=== PATIENT | female | born 1970 | race Caucasian/White ===

== ENCOUNTER 2022-03-14 15:24 | Outpatient (REF) | payer BC, SELFPAY ==
--- NOTE | ~2022-03-14 | XR_ITS ---
EXAMINATION: XR CHEST CLINICAL INFORMATION: Cough. COMPARISON: None TECHNIQUE: 2 views of the chest were obtained. FINDINGS: The lungs are somewhat expanded and clear of acute process. The heart size and perivascular is normal. There is moderate spondylosis dorsal spine. No aggressive lytic or sclerotic process seen. XR/XR chest 2V IMPRESSION: Unremarkable chest examination.
== END 2022-03-14 15:25 | disposition home or self-care (01) ==
LOC: HO.XRAY 15:24
PROVIDERS: Visit Provider Registered Nurse
DX: R05.8 Other specified cough (principal)
CPT/HCPCS: 71046

== ENCOUNTER 2022-08-01 15:35 | Outpatient (REF) | payer BC, SELFPAY ==
--- NOTE | ~2022-08-01 | MM_ITS ---
EXAMINATION: MM SCREENING DIGITAL BREAST TOMOSYNTHESIS, BILATERAL CLINICAL INFORMATION: Screening. Asymptomatic. Family history breast cancer, mother. The lifetime risk of breast cancer based on the Tyrer-Cuzick Model is 14%. COMPARISON: Mammography: 06/28/2018; outside exam 03/16/2018 ([facility]); 06/11/2016, 10/14/2014 (baseline) TECHNIQUE: Digital breast tomosynthesis is performed in both the craniocaudal and mediolateral oblique views along with computer-aided detection (CAD). Synthesized 2D images are generated from the tomosynthesis. FINDINGS: There are scattered areas of fibroglandular density (ACR BI-RADS breast composition Category b). Parenchymal pattern is similar to prior studies. There is no developing density or architectural abnormality. There are no significant masses, abnormal calcifications, or other abnormalities. The axilla and skin contours are unremarkable. No significant changes. MM/MM tomosynthesis screening BI IMPRESSION: No mammographic evidence of malignancy. ASSESSMENT: BI-RADS 1: Negative RECOMMENDATION: Routine annual mammography screening. This patient's information was entered into a reminder system with a target due date for their next mammogram.
== END 2022-08-01 15:36 | disposition home or self-care (01) ==
LOC: HO.MAMMO 15:35
PROVIDERS: PCP Internal Medicine; Visit Provider Internal Medicine
DX: Z12.31 Encounter for screening mammogram for malignant neoplasm of breast (principal)
CPT/HCPCS: 77063; 77067

== ENCOUNTER 2022-12-17 18:12 | Outpatient (REF) | payer BC, SELFPAY ==
[2022-12-18 10:44] LABS: BV Int Neg Control Negative (Negative); BV Int Pos Control Positive (Positive)
== END 2022-12-17 18:13 | disposition home or self-care (01) ==
LOC: HO.HHCLNP 18:12
PROVIDERS: Visit Provider Registered Nurse
DX: R39.9 Unspecified symptoms and signs involving the genitourinary system (principal); N89.8 Other specified noninflammatory disorders of vagina
CPT/HCPCS: 87086; 87480; 87510; 87660

== ENCOUNTER 2023-03-17 13:45 | Outpatient (REF) | payer MEDICAID, SELFPAY ==
--- NOTE | ~2023-03-17 | XR_ITS ---
EXAMINATION: XR CHEST 2 VIEW CLINICAL INFORMATION: Asthma exacerbation COMPARISON: 03/14/2022 TECHNIQUE: PA and lateral views of the chest obtained. FINDINGS: The lungs are clear. There are no pleural effusions. The cardiomediastinal silhouette is normal. XR/XR chest 2V IMPRESSION: No acute cardiopulmonary disease.
[2023-03-17 19:13] LABS: Influenza A PCR NEGATIVE (Negative); Influenza B PCR NEGATIVE (Negative); Resp Syncy Virus RNA Qual PCR NEGATIVE (Negative); SARS COV2 PCR INHOUSE NEGATIVE (Negative)
== END 2023-03-17 13:46 | disposition home or self-care (01) ==
LOC: HO.HHCX 13:45
PROVIDERS: Visit Provider Internal Medicine
DX: J45.21 Mild intermittent asthma with (acute) exacerbation (principal); Z11.52 Encounter for screening for COVID-19
CPT/HCPCS: 0241U; 71046; 87205

== ENCOUNTER 2023-04-16 15:56 | Outpatient (REF) | payer MEDICAID, SELFPAY ==
--- NOTE | ~2023-04-16 | XR_ITS ---
EXAMINATION: XR CHEST CLINICAL INFORMATION: Pain. COMPARISON: 03/17/2023 TECHNIQUE: 2 views of the chest were obtained. FINDINGS: No significant abnormality is noted involving the heart, lungs, mediastinum, bony thorax or soft tissues. XR/XR chest 2V IMPRESSION: No active cardiopulmonary disease.
== END 2023-04-16 15:57 | disposition home or self-care (01) ==
LOC: HO.HHCX 15:56
PROVIDERS: Visit Provider Student in an Organized Health Care Education/Training Program
DX: M54.9 Dorsalgia, unspecified (principal)
CPT/HCPCS: 71046

== ENCOUNTER 2023-05-13 14:31 | Outpatient (REF) | payer MEDICAID, SELFPAY ==
[2023-05-15 22:33] LABS: TS Negative Control Passed; TS Panel A 1; TS Panel B 0; TS Positive Control Passed; TSpotTB Negative (Negative)
== END 2023-05-13 14:32 | disposition home or self-care (01) ==
LOC: HO.HHCL 14:31
PROVIDERS: Visit Provider Internal Medicine
DX: Z11.1 Encounter for screening for respiratory tuberculosis (principal)
CPT/HCPCS: 36415; 86481

== ENCOUNTER 2023-06-16 08:42 | Outpatient (AMB) | payer MEDICAID, SELFPAY ==
--- NOTE | 2023-06-16 08:44 | MHC.OFFVIS ---
Intake Vital Signs 06/16/23 08:59 06/16/23 09:01 Height 5 ft 3 in 5 ft 3 in Weight 209 lb 209 lb BMI 37.0 37.0 BP 120/70 Blood Pressure Location Lt brachial Position Sitting Pulse 96 Pulse Source Pulse Oximeter Pulse Oximetry (%) 99 Oxygen Delivery Method Room Air Intake Visit Reasons: E-ELECTRICIAN OUTSIDE: EDNA-LVM Intake Note: Patient presents for. loud snoring and gets up a lot during the night. Wake up coughing Allergies iodine Allergy (Unknown, Verified 06/16/23 09:23) Unknown penicillin V Allergy (Unknown, Verified 06/16/23 09:23) Unknown bee sting Allergy (Unknown, Uncoded 06/16/23 09:23) Rash HPI HPI Comments History of Present Illness Details 53 y/o female patient presents for new in-person visit for sleep consultation. She started new job, [employer] and had a DOT physical. Pt is recommended to have sleep study to r/o sleep apnea due to neck size and high BMI. Pt reports difficulty falling asleep, and staying sleep, and nocturia. Pt reports loud snoring, non refreshing and daytime sleepiness. Sleep questionnaire: Have you ever been diagnosed with a sleep disorder? No. Have you ever had a sleep study in the past? No. Have you ever been treated for a sleep disorder? No. Do you take medications for a sleep disorder? Benaryl, or Unisom. She tried melatonin, but it did not help. Do you snore? Yes. Do you wake up gasping at night? No. Do you have episodes of apneas? Don't know. If yes, are they witnessed? No. Do you have episodes of nocturnal chest pain or dyspnea? Yes, when she has nasal congestion and also when she anxious. Do you have difficulty initiating sleep? Yes. Do you have difficulty maintaining sleep? Yes. Do you wake up tired? Yes, all the time. Do you have headaches upon awakening? No. Do you wake up with dry mouth or throat? Yes. Do you have GERD? Yes. Do you have nocturia? Yes, 4-5 times at night. Do you have nocturnal leg cramps? Yes. Do you have symptoms of restless legs? Yes, sometimes. Do you act out your dreams? No. Sleep hygiene questionnaire: What is your usual sleep routine? Usual bedtime is at 10-11 pm; Usual wake up time is at 5 am. Do you take naps? Yes, sometimes. Is your sleep environment cool, dark, and quiet? Yes. Do you exercise? Yes, gym couple of times a week. Do you take caffeine or other stimulants? Soda throughout the day. Do you use electronics in bed? No. What is your work schedule? Don't know yet, she just started new job. Hypersomnolence questionnaire: Do you have daytime tiredness or fatigue? Yes. Do you easily fall asleep when inactive? Yes. Have you ever had episodes of sudden weakness? No. Have you ever had episodes of sudden weakness associated with strong emotions? No. PFSH Family History (Updated 06/16/23 @ 09:27 by Dunia Wilder [facility]) Father Skin cancer Stroke Alzheimer disease High cholesterol Mother Breast cancer in female High blood sugar Stroke Review of Systems Const All systems reviewed & are unremarkable except as noted in HPI and below Physical Exam Vital Signs: Last Vital Signs Pulse 96 06/16/23 08:59 BP 120/70 06/16/23 08:59 Pulse Ox 99 06/16/23 08:59 Oxygen Delivery Method Room Air 06/16/23 08:59 BMI result Body Mass Index 37.0 Const General: cooperative Nutritional Appearance: obese Orientation/consciousness: patient oriented x3 Neck Neck: Yes full ROM and Yes supple Resp Effort & Inspection: normal respiratory effort and able to speak in complete sentences Neuro General: patient oriented x3, gait normal and moves all extremities Cranial nerves: Yes CN's II-XII intact bilaterally Motor exam (neuro): 5/5 motor strength present throughout Psych Appearance: grossly normal Mental Status: mental status grossly normal Speech and movement: Normal speech and movement present Affect: normal affect Attitude: cooperative Assessment & Plan Assessment & Plan (1) Loud snoring: Code(s): R06.83 - Snoring (2) Daytime sleepiness: Code(s): R40.0 - Somnolence Plan Pt is advised to undergo home sleep study to assess for sleep apnea. Will f/u with pt after study to discuss results and appropriate treatment options. Sleep hygiene education provided. Wt reduction advised. Pt to call with any worsening concerns or questions. Coding Level of Care Code New Pt Level 3 (94082) Diagnoses Loud snoring R06.83 Daytime sleepiness R40.0
[2023-06-16 08:59] VITALS: BP 120/70; PULSE 96; O2SAT 99; BMI 37.0
[2023-06-16 09:01] VITALS: BMI 37.0
== END 2023-06-16 09:18 | disposition home or self-care (01) ==
PROVIDERS: PCP Internal Medicine; Visit Provider Nurse Practitioner Family
DX: R06.83 Snoring (principal); R40.0 Somnolence
CPT/HCPCS: 99203

== ENCOUNTER → 2023-06-16 08:42 | Outpatient (BNVA) | payer MEDICAID, SELFPAY | PROVIDERS: PCP Internal Medicine; Visit Provider Nurse Practitioner Family | DX: R06.83 Snoring (principal); R40.0 Somnolence | CPT/HCPCS: 99212 ==

== ENCOUNTER 2023-11-11 16:49 | Outpatient (REF) | payer MEDICAID, SELFPAY ==
[2023-11-11 17:34] LABS: MANUAL DIFF FLAG NO
[2023-11-11 17:41] LABS: Basophils Absolute Auto 0.1 X10*3/uL (0.0-0.2); Basophils Percent Auto 0.5 % (0-2); Eosinophils Absolute Auto 0.5 X10*3/uL (0.0-0.4); Eosinophils Percent Auto 4.2 % (0-4); Hematocrit 42.6 % (37.0-47.0); Imm Gran Abs Auto 0.04 X10*3/uL (0.00-0.03); Imm Gran Pct Auto 0.3 % (0.0-0.4); Lymphocytes Absolute Auto 2.4 X10*3/uL (1.2-4.9); Lymphocytes Percent Auto 18.6 % (20-40); Mean Corpuscular HGB Conc 32.9 g/dl (31.0-35.0); Mean Corpuscular Hemoglobin 28.5 pg (27.0-33.0); Mean Corpuscular Volume 86.6 fL (80.0-98.0); Monocytes Absolute Auto 0.9 X10*3/uL (0.1-1.2); Monocytes Percent Auto 7.3 % (2-11); Neutrophils Absolute Auto 8.8 x10*3/uL (2.0-8.3); Neutrophils Percent Auto 69.1 % (45-73); Platelet Count 396 X10*3/uL (160-400); Red Blood Count 4.92 X10*6/uL (4.20-5.50); Red Cell Distribution Width 14.7 % (11.0-16.0); White Blood Count 12.7 X10*3/uL (4.8-10.8)
[2023-11-11 18:10] LABS: Alanine Aminotransferase 12 U/L (0-31); Albumin Level 4.1 g/dL (3.5-5.0); Alkaline Phosphatase 89 U/L (39-117); Anion Gap 13 (12-20); Aspartate Amino Transferase 17 U/L (5-31); Bilirubin Total 0.4 mg/dL (0.0-1.0); Blood Urea Nitrogen 14 mg/dL (9-16); Calcium 9.3 mg/dL (8.4-10.2); Carbon Dioxide 23 mmol/L (22-29); Chloride 108 mmol/L (96-108); Estimated Glomerular Filt Rate > 60; Glucose Random 72 mg/dL (60-115); Sodium 140 mmol/L (135-145); Total Protein 7.1 g/dL (6.5-8.0)
[2023-11-11 18:30] LABS: TSH reflex Free T4 1.38 uIU/mL (0.32-4.0); Vitamin B12 433 pg/mL (200-900)
[2023-11-13 14:04] LABS: RPR Rapid Plasma Reagin NON-REACTIVE (NON-REACTIVE)
== END 2023-11-11 16:50 | disposition home or self-care (01) ==
LOC: HO.HHCL 16:49
PROVIDERS: Visit Provider Emergency Medicine
DX: R41.3 Other amnesia (principal)
CPT/HCPCS: 36415; 80053; 82607; 84443; 85025; 86592

== ENCOUNTER 2023-12-25 16:41 | Outpatient (REF) | payer MEDICAID, SELFPAY ==
--- NOTE | ~2023-12-25 | MR_ITS ---
MRI OF THE BRAIN WITHOUT IV CONTRAST INDICATION: Several week history of memory loss. COMPARISON: None available. TECHNIQUE: Multiplanar multisequence MR imaging of the brain was obtained without IV contrast. FINDINGS: There is no hydrocephalus, extra-axial surface collection, or herniation. No parenchymal signal abnormality. The major flow voids at the skull base are preserved. There is no acute infarct on diffusion-weighted imaging. There is no intracranial hemorrhage on the gradient recalled echo acquisition. The midline structures are normal. The cerebellar tonsils are normally positioned. The cerebellum and brainstem are normal. The craniocervical junction is normal. Osseous marrow signal intensity is homogenous. The visualized soft tissues are unremarkable. MR/MR head/brain wo con IMPRESSION: Unremarkable noncontrast MRI of the brain. Electronically signed by: José Power MD 01/13/2024 03:36 PM EDT
== END 2023-12-25 16:42 | disposition home or self-care (01) ==
LOC: HO.MRI 16:41
PROVIDERS: PCP Internal Medicine; Visit Provider Emergency Medicine
DX: R41.3 Other amnesia (principal)
CPT/HCPCS: 70551

== ENCOUNTER → 2024-02-06 10:30 | Outpatient (BNV) | payer MEDICAID, SELFPAY | PROVIDERS: PCP Internal Medicine; Visit Provider Internal Medicine | DX: Z12.31 Encounter for screening mammogram for malignant neoplasm of breast (principal) | CPT/HCPCS: 77063; 77067 ==

== ENCOUNTER 2024-02-06 10:35 | Outpatient (REF) | payer MEDICAID, SELFPAY ==
--- NOTE | ~2024-02-06 | MM_ITS ---
EXAMINATION: MM SCREENING DIGITAL BREAST TOMOSYNTHESIS, BILATERAL CLINICAL INFORMATION: Screening. Asymptomatic. COMPARISON: Mammography: Comparison is made with available priors TECHNIQUE: Digital breast mammography with tomosynthesis is performed in both the craniocaudal and mediolateral oblique views along with computer-aided detection (CAD). FINDINGS: There are scattered areas of fibroglandular density (ACR BI-RADS breast composition Category b). There are no significant masses, abnormal calcifications, or other abnormalities. MM/MM tomosynthesis screening BI IMPRESSION: No mammographic evidence of malignancy. ASSESSMENT: BI-RADS BI-RADS 1 - Negative RECOMMENDATION: Routine annual mammography screening. 1 year F/U This examination should not preclude the clinical evaluation of a suspicious palpable abnormality. This patient's information was entered into a reminder system with a target due date for their next mammogram. Electronically signed by: [place] Hammond DO 02/19/2024 09:31 AM EDT
== END 2024-02-06 10:36 | disposition home or self-care (01) ==
LOC: HO.MAMMO 10:35
PROVIDERS: PCP Internal Medicine; Visit Provider Internal Medicine
DX: Z12.31 Encounter for screening mammogram for malignant neoplasm of breast (principal)
CPT/HCPCS: 77063; 77067

== ENCOUNTER → 2024-02-16 15:01 | Outpatient (REF) | payer MEDICAID, SELFPAY | LOC: HO.SL 15:01 | PROVIDERS: PCP Internal Medicine; Visit Provider Psychiatry & Neurology Neurology | DX: G47.33 Obstructive sleep apnea (adult) (pediatric) (principal) | CPT/HCPCS: 95806 ==

== ENCOUNTER 2024-04-08 13:45 | Outpatient (REF) | payer MEDICAID, SELFPAY | END 2024-04-08 13:46 | disposition home or self-care (01) | LOC: HO.XRAY 13:45 | PROVIDERS: PCP Nurse Practitioner Primary Care; Visit Provider Nurse Practitioner Primary Care | DX: M79.672 Pain in left foot (principal) | CPT/HCPCS: 73630 ==

== ENCOUNTER 2025-05-02 09:57 | Outpatient (REF) | payer MEDICAID, SELFPAY ==
[2025-05-02 11:21] LABS: MANUAL DIFF FLAG NO
[2025-05-02 11:33] LABS: Hematocrit 41.6 % (37.0-47.0); Hemoglobin 13.4 g/dl (12.0-16.0); Imm Gran Abs Auto 0.05 X10*3/uL (0.00-0.03); Imm Gran Pct Auto 0.5 % (0.0-0.4); Lymphocytes Absolute Auto 1.9 X10*3/uL (1.2-4.9); Mean Corpuscular HGB Conc 32.2 g/dl (31.0-35.0); Mean Corpuscular Hemoglobin 28.3 pg (27.0-33.0); Mean Corpuscular Volume 87.8 fL (80.0-98.0); NRBC Abs Auto 0.000 X10*3/uL (0.0-0.012); NRBC Pct Auto 0.0 /100WBC (0.0-0.2); Platelet Count 401 X10*3/uL (160-400); Red Blood Count 4.74 X10*6/uL (4.20-5.50); White Blood Count 9.3 X10*3/uL (4.8-10.8)
[2025-05-02 12:26] LABS: Alanine Aminotransferase 25 U/L (0-31); Albumin Level 4.0 g/dL (3.5-5.0); Alkaline Phosphatase 97 U/L (39-117); Anion Gap 9 (12-20); Aspartate Amino Transferase 35 U/L (5-31); Blood Urea Nitrogen 14 mg/dL (9-16); Calcium 9.6 mg/dL (8.4-10.2); Carbon Dioxide 26 mmol/L (22-29); Chloride 109 mmol/L (96-108); Cholesterol 151 mg/dL (<200); Estimated Glomerular Filt Rate > 60; HDL Cholesterol 55 mg/dL (>40); Potassium 4.1 mmol/L (3.3-5.1); Sodium 140 mmol/L (135-145); Total Protein 6.8 g/dL (6.5-8.0); Triglycerides 75 mg/dL (<150)
[2025-05-02 12:55] LABS: Reflex LDLD? No
--- OUTSIDE RECORDS SUMMARY | 2025-05-02 12:57 | XMS_ITS | Encounter Summary ---
Author Organization [employer] Address [address] [place] [address] Care Team Providers Care Health Insurance Adjuster Name Role Phone Rekha Adhikari MD Primary Care Provider + Encounter Details Date Type Department Care Team (Latest Contact Info) Description 02/28/2019 Abstract [facility] CONVERSIONS Dental, Provider, DDS Social History Tobacco Use Types Packs/Day Years Used Date Smoking Tobacco: Never Assessed Comments Unknown Sex and Gender Information Value Date Recorded Sex Assigned at Female 03/03/2022 10:36 AM EDT Legal Sex Female 10:36 AM EDT Gender Identity Female 03/03/2022 10:36 AM EDT Sexual Orientation Choose not to disclose 2021 10:36 AM EDT documented as of this encounter Plan of Treatment Not on file documented as of this encounter Visit Diagnoses Not on filedocumented in this encounter Care Teams Health Insurance Adjuster Relationship Specialty Start Date End Date Rekha Adhikari MD [address] [place] [id number] PCP - General Family Medicine 03/24/19 documented as of this encounter
--- OUTSIDE RECORDS SUMMARY | 2025-05-02 12:57 | XMS_ITS | Encounter Summary ---
Author Organization [employer] Address [address] [place] [address] Care Team Providers Care Fabrication Department Supervisor Name Role Phone Rekha Adhikari MD Primary Care Provider + Reason for Visit * Reason Comments Med Refill Encounter Details Date Type Department Care Team ([facility] st Contact Info) Description 01/23/2023 Refill [facility] [address] [place] [address] [phone] Eliel Wells MD [address] [place] [address] Influenza-like symptoms Social History Tobacco Use Types Packs/Day Years Used Date Smoking Tobacco: Never Passive Smoke Exposure: Never Smokeless Tobacco: Never Alcohol Use Standard Drinks/Week Comments Never 0 (1 standard drink = 0.6 oz pur e alcohol) Depression Answer Date Recorded Patient Health Questionnaire-9 Score 8 06/10/2022 Depression Answer Date Recorded Patient Health Questionnaire-2 Score 6 06/10/2022 Comments Unknown Sex and Gender Information Value Date Recorded Sex Assigned at Female 03/03/2022 10:36 AM EDT Legal Sex Female 10:36 AM EDT Gender Identity Female 03/03/2022 10:36 AM EDT Sexual Orientation Choose not to disclose 2021 10:36 AM EDT documented as of this encounter Plan of Treatment Not on file documented as of this encounter Visit Diagnoses Diagnosis Influenza-like symptoms Other general symptoms documented in this encounter Additional Health Concerns Assessment Noted Time PHQ-9 Depression Total Score: 8 06/10/19 23 9:58 AM EST documented as of this encounter Care Teams Fabrication Department Supervisor Relationship Specialty Start Date End Date Rekha Adhikari MD [address] [place] [id number] PCP - General Family Medicine 03/24/19 documented as of this encounter
--- OUTSIDE RECORDS SUMMARY | 2025-05-02 12:57 | XMS_ITS | Encounter Summary ---
Author Organization [employer] Address [address] [place] [address] Care Team Providers Care Web Sizer Name Role Phone Rekha Adhikari MD Primary Care Provider + Reason for Visit * Reason Comments Med Refill Encounter Details Date Type Department Care Team ([facility] st Contact Info) Description 08/22/2022 Refill [facility] [address] [place] [address] [phone] Eliel Wells MD [address] [place] [address] Influenza-like symptoms Social History Tobacco Use Types Packs/Day Years Used Date Smoking Tobacco: Never Smokeless Tobacco: Never Alcohol Use Standard [...] documented as of this encounter Care Teams Web Sizer Relationship Specialty Start Date End Date Rekha Adhikari MD [address] [place] [phone] PCP - General Family Medicine 03/24/19 documented as of this encounter
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
--- OUTSIDE RECORDS SUMMARY | 2025-05-02 12:57 | XMS_ITS | Encounter Summary ---
Author Organization [employer] Address [address] [address] [place] [address] Care Team Providers Care Fastener Technologist Name Role Phone Rekha Adhikari MD Primary Care Provider + Encounter Details Date Type Department Care Team ([facility] st Contact Info) Description 04/14/2023 Telephone [facility] [address] [place], [place] [phone] Rekha Adhikari MD [address] [place], [place] [phone] Social History Tobacco Use Types Packs/Day Years [...] Diagnoses Not on filedocumented in this encounter Additional Health Concerns Assessment Noted Time PHQ-9 Depression Total Score: 8 06/10/19 23 9:58 AM EST documented as of this encounter Care Teams Fastener Technologist Relationship Specialty Start Date End Date Rekha Adhikari MD [address] [place] [id number] PCP - General Family Medicine 03/24/19 documented as of this encounter
--- OUTSIDE RECORDS SUMMARY | 2025-05-02 12:57 | XMS_ITS | Encounter Summary ---
Author Organization [employer] Address [address] [facility] 7t [place] [address] Care Team Providers Care Station Jailer Name Role Phone Rekha Adhikari MD Primary Care Provider + Reason for Visit * Reason Comments Med Refill Encounter Details Date Type Department Care Team ([facility] st Contact Info) Description 09/28/2023 Refill [facility] [address] [place] [address] [phone] Natalie Koch MD [address] [place] [address] Social History Tobacco Use Types Packs/Day Years [...] documented as of this encounter Care Teams Station Jailer Relationship Specialty Start Date End Date Rekha Adhikari MD [address] [place] [phone] PCP - General Family Medicine 03/24/19 documented as of this encounter
--- OUTSIDE RECORDS SUMMARY | 2025-05-02 12:57 | XMS_ITS | Clinical Summary ---
Author Organization [address] [facility] Address [address] [place] [address] Phone Care Team Providers Care Automobile Mechanic Radiator Name Role Phone JuarezBhavna DEVICE SALES CONSULTANT Primary Care Provider [phone] Allergies Active Allergy Reactions Criticality Noted Date Comments Nitrofurantoin Medium 12/10/2005 Macrobid [Nitrofurantoin Monohydrate Macrocrystals] dizziness Penicillins High 12/10/2005 Pcn Other Reaction(s): Hives/Urticaria Sulfa (Sulfonamide Antibiotics) Nausea And Vomiting High 12/10/2005 Sulfa Drugs dizziness Medications multivitamin with minerals (HAIR,SKIN AND NAILS ORAL) HAIR/SKIN/N AILS OR TABS 1 TABLET DAILY Active valACYclovir (VALTREX) 1 gram tablet Take 2 Tabs by mouth 2 times daily. 09/23/2012 Active Active Problems Problem Noted Date Diagnosed Date Herpes labialis 04/19/2012 Acne 07/03/2008 GERD (gastroesophageal reflux disease) 9 Incontinence of urine 07/03/2008 Overview (06/21/2024): Prev eval by urology per pt Ref followup 07/10--N/s Immunizations Immunization Administration Dates Next Due Tdap Tetanus diptheria acell ular pertussis (Boostrix; Adacel) 7yo and older 07/03/2008 Surgical History Surgery Date Site/Laterality Comments OTHER SURGICAL HISTORY 2003 PROCEDURE: ---- OTHER ----; COMMENT: endometrial polyp Medical History Medical History Date Comments Herpes labialis DX:Herpes labial is Family History Medical History Relation Name Comments Hyperlipidemia Father Hypertension Father Stroke Father 3 strokes Diabetes Maternal Grandmother Hyperlipidemia Mother Breast cancer Neg Hx Colon cancer Neg Hx Ovarian cancer Neg Hx Relation Name Status Comments Father Alive Maternal Grandfather Maternal Grandmother Mother Alive Paternal Grandfather Paternal Grandmother Sister 1 Alive Sister 2 Alive Son Alive Social History Tobacco Use Types Packs/Day Years Used Date Smoking Tobacco: Former Smokeless Tobacco: Never Alcohol Use Standard Drinks/Week Comments No 0 (1 standard drink = 0.6 oz pur e alcohol) Comments Unknown Sex and Gender Information Value Date Recorded Sex Assigned at Not on file Legal Sex Female 10:17 AM EST Gender Identity Not on file Sexual Orientation Not on file Plan of Treatment Health Maintenance Due Date Last Done Comments Colorectal Cancer Screening: Colonoscopy 1970 Pneumococcal Vaccine: 50+ Years (1 of 2 - PCV) 1991 Cervical Cancer Screening: Pap Smear 04/19/2015 04/19/2012 Breast Cancer Screening 03/16/2020 03/16/2018 RSV Immunization Adult Patients (1 - Risk 50-74 years 1-dose series) 2022 Zoster Vaccines (1 of 2) 2022 Depression Screening 05/04/2024 Social Influencers of Health Screening 06/20/2024 Hypertension/CHF/CAD Annual BMP Blood Test 11/10/2024 COVID-19 Vaccine (1 - season) 2025 Influenza Vaccine (#1) 2025 , 02/28/2019, 02/20/2018 Cholesterol Screening (Lipid Panel) 05/15/2026 05/15/2021, 07/04/2008 DTaP,Tdap,and Td Vaccines (3 - Td or Tdap) 01/03/2030 01/04/2020, 07/03/2008 HIV Screening Completed 08/11/2012 Hepatitis C Screening Completed 08/11/2012 MMR Vaccines Aged Out 07/01/2017 No longer eligi ble based on patient's age to complete this topic Hepatitis B Vaccines Completed 02/18/2024, 01/14/2024, 02/18/2022, [...] patient's age to complete this topic Meningococcal ACWY Vaccine Aged Out N o longer eligible based on patient's age to complete this topic Meningococcal B Vaccine Aged Out No l onger eligible based on patient's age to complete this topic RSV Immunization Patients Under 20 months Aged Out No longer eligible based on patient's age to complete this topic Varicella Vaccines Aged Out No longer eligible based on patient's age to complete this topic Procedures Procedure Name Priority Date/Time Associated Diagnosis Comments HEPATITIS C SCREENING Routine 08/11/2012 HIV SCREENING Routine 08/11/2012 PAP SMEAR Routine 04/19/2012 LIPID PANEL Routine 07/04/2008 from Last 3 Months or Most Recently Relevant to Health Maintenance Results * HIV Screening (08/11/2012) HIV Screening abstracted [facility] Provider HEALTH MAINTENANCE Final Result * Hepatitis C Screening (08/11/2012) Pathologist [facility] Hepatitis C Screening abstracted [facility] Provider HEALTH MAINTENANCE Final Result * Pap Smear (04/19/2012) Pathologist [facility] Pap smear abnormal, abstracted [facility] Provider HEALTH MAINTENANCE Final Result * Lipid panel (07/04/2008) Pathologist [facility] LDL/HDL Ratio 2 0 - 4 Triglycerides 67 0 - 150 mg/dL Cholesterol 114 0 - 200 mg/dL HDL 46 >=40 mg/dL LDL Cholesterol 55 0 - 100 mg/dL Blood Venous blood specimen / Unknown [facility] Provider LAB BLOOD ORDERABLES Sameera l Result from Last 3 Months or Most Recently Relevant to Health Maintenance Insurance * Guarantor: Romulo Rodrigez Account Type Relation to Patient Date of Phone Billing Address Personal/Family Self [address] [place] [address] MEDICAID - [place] Care Teams Automobile Mechanic Radiator Relationship Specialty Start Date End Date Bhavna Juarez NP [address] [facility] [address] [place] [phone] PCP - General 06/20/24
--- OUTSIDE RECORDS SUMMARY | 2025-05-02 12:57 | XMS_ITS | Encounter Summary ---
Author Organization [employer] Address [address] [address] [place] [address] Care Team Providers Care Card Runner Name Role Phone Rekha Adhikari MD Primary Care Provider + Reason for Visit * Reason Comments Med Refill Encounter Details Date Type Department Care Team ([facility] st Contact Info) Description 01/23/2023 Refill [facility] [address] [place] [address] [phone] Eliel Wells MD [address] [place] [phone] Influenza-like symptoms Social History Tobacco Use Types [...] documented as of this encounter Care Teams Card Runner Relationship Specialty Start Date End Date Rekha Adhikari MD [address] [place] [phone] PCP - General Family Medicine 03/24/19 documented as of this encounter
--- OUTSIDE RECORDS SUMMARY | 2025-05-02 12:57 | XMS_ITS | Encounter Summary ---
Author Organization [employer] Address [address] [facility] [address] [place] [address] Care Team Providers Care Lead Business Systems Analyst Name Role Phone Rekha Adhikari MD Primary Care Provider + Reason for Visit * Reason Onset Date Comments Angus 05/02/2025 [facility] Outreach Encounter Details Date Type Department Care Team ([facility] st Contact Info) Description 05/02/2025 Telephone [facility] [address] [place] [phone] Veda Mack, RN Angus ([facility] Outreach) Social History Tobacco Use Types Packs/Day Years Used Date Smoking Tobacco: Never Passive Smoke Exposure: Never Smokeless Tobacco: Never Alcohol Use Standard Drinks/Week Comments Not Currently [...] AM EDT documented as of this encounter Miscellaneous Notes * Telephone Encounter - Veda Mack RN - 05/02/2025 11:35 AM EST RN outreach completed for Cologuard?? follow-up. Spoke with patient regarding the importance of completing colorectal cancer screening and reviewed how to properly collect and return the Cologuard?? kit. Discussed common barriers and provided education on options for UPS drop-off or scheduling a home pick-up. Patient verbalized understanding and plans to complete the test. Encouraged patient to call the clinic if additional questions or barriers arise. If patient needs materials resent, confirmed preferred method (mail/text/email). Confirmed correct mailing address for test kit. Documented any reported barriers in the tracking spreadsheet. documented in this encounter Plan of Treatment Not on file documented as of this encounter Visit Diagnoses Not on filedocumented in this encounter Additional Health Concerns Assessment Noted Time PHQ-9 Depression Total Score: 8 06/10/19 23 9:58 AM EST documented as of this encounter Care Teams Lead Business Systems Analyst Relationship Specialty Start Date End Date Rekha Adhikari MD [address] [place] [phone] PCP - General Family Medicine 03/24/19 documented as of this encounter
== END 2025-05-02 09:58 | disposition home or self-care (01) ==
LOC: HO.HHCL 09:57
PROVIDERS: PCP Internal Medicine; Visit Provider Internal Medicine
DX: E66.811 Obesity, class 1 (principal); E55.9 Vitamin D deficiency, unspecified; Z68.33 Body mass index [BMI] 33.0-33.9, adult; Z78.0 Asymptomatic menopausal state
CPT/HCPCS: 36415; 80053; 80061; 82306; 84443; 85025